=== PATIENT | female | born 1930 | race Caucasian/White ===

== ENCOUNTER 2017-06-26 16:05 | Observation (INO) | payer MEDICARE ==
[~2017-06-26] VITALS: Ht 162.6 cm; Wt 79.2 kg
[~2017-06-26 16:05] MED LIST: AMLO5TAB2 PO; ASP81TEC PO; CALC-732 PO; CRV25T PO; FENO160T3 PO; GABA300C PO; HUM100VI12 SC; KCL10CCR PO; LISI1TAB10 PO; MULT-974 PO; NORT25CA PO; OMEG-9 PO; PRAV40TA PO; VITA400T9 PO
--- OUTSIDE RECORDS SUMMARY | 2017-06-26 16:09 | XMS REPORT | Continuity of Care Document ---
Author Author [facility] Organization [facility] Address Unknown Phone Unavailable Allergies Medications Problems Procedures Results Encounters ACCT No. Visit Date/Time Discharge Status Pt. Type Provider Facility Loc./Unit Complaint [id number] 04/06/2014 20:45:00 2013 10:50:00 DIS Inpatient
[2017-06-26] MEDS ORDERED: fentaNYL INJECTION 100 MCG/2 ML AMP IVP STA ×3 (16:13→20:45)
--- NOTE | 2017-06-26 16:44 | Diagnostic Imaging Report ---
PROCEDURE: CT head without contrast. TECHNIQUE: Multiple contiguous axial images were obtained through the brain without the use of intravenous contrast. INDICATION: Fall. Head injury. COMPARISON: None. FINDINGS: No acute intracranial hemorrhage, mass effect, or edema is seen. There is mild diffuse atrophy. The ventricles appear unremarkable. There are a few scattered areas of hypodensity in periventricular white matter which are nonspecific but probably related to chronic microvascular ischemic change. Paranasal sinuses and mastoids are clear as visualized. No basilar skull fracture is suspected. IMPRESSION: No evidence of an acute intracranial abnormality. Dictated by: Dictated on workstation # [id number]
--- NOTE | 2017-06-26 16:53 | ED Fall/Injury ---
General Chief Complaint: Trauma-Non Activation Stated Complaint: FALL Nursing Triage Note: to ER by [facility] with reports of fall at home, landing on her right knee. Patient was in the kitchen, turned and lost her footing and fell, landing directly on the right knee. Patient denies hitting head, denies LOC, denies any other injury. There is moderate swelling to the right knee. Source: patient Exam Limitations: no limitations History of Present Illness Time seen by provider: 16:11 Initial Comments 87-year-old female patient presents to the emergency department via [facility] with reports of falling at home. Reports landing on her right knee and right elbow. Now complains of right knee pain. Denies hitting her head or loss of consciousness. Patient is legally blind. Patient lives at home alone. Patient is unable to bear weight on the right lower extremity. Location Injury Occurred: home Occurred: just prior to arrival Injuries/Pain Location: upper extremity (right elbow), lower extremity (right knee) Context: tripped Loss of Consciousness: no loss of consciousness Modifying Factors: Worse With Movement Allergies and Home Medications Allergies Coded Allergies: No Known Drug Allergies (Unverified , 04/06/14) Home Medications Acetaminophen 500 Mg Tablet, 500 MG PO DAILY, (Reported) Amlodipine Besylate 5 Mg Tablet, 5 MG PO DAILY, (Reported) Aspirin 81 Mg Tabec, 81 MG PO DAILY, (Reported) Calcium Carb/Vit D3/Minerals 1 Each Tab.chew, 1 EACH PO DAILY, (Reported) Carvedilol 25 Mg Tablet, 1 EACH PO BID, (Reported) Clopidogrel Bisulfate 75 Mg Tablet, 75 MG PO DAILY, (Reported) Fenofibrate,Micronized 160 Mg Tablet, 1 TAB PO DAILY, #30 (Reported) Furosemide 40 Mg Tablet, 40 MG PO LASIXBID, (Reported) Gabapentin 300 Mg Capsule, 300 MG PO HS, (Reported) Hctz/Lisinopril 1 Tab Tablet, 1 EACH PO DAILY, (Reported) Multivitamin 1 Each Tablet, 1 EACH PO DAILY, (Reported) Nortriptyline Hcl 25 Mg Capsule, 25 MG PO DAILY, (Reported) [place]-3/Dha/Epa/Fish Oil 1 Each Capsule.dr, 1 EACH PO DAILY, (Reported) Omeprazole 20 Mg Capsule.dr, 20 MG PO DAILY, (Reported) Potassium Chloride 20 Meq Tablet.er, 20 MEQ PO LASIXBID, (Reported) 20mEQ IN AM EVERY OTHER DAY WITH LASIX Potassium Chloride 10 Meq Tablet.er, 10 MEQ PO LASIXBID, (Reported) 10mEQ IN PM ON DAYS YOU TAKE LASIX Pravastatin Sodium 40 Mg Tablet, 40 MG PO HS, (Reported) Vitamin E Mixed 400 Unit Tablet, 400 UNIT PO DAILY, (Reported) Constitutional: no symptoms reported Eyes: No Symptoms Reported Ears, Nose, Mouth, Throat: no symptoms reported Respiratory: No cough, No short of breath Cardiovascular: No chest pain, No palpitations Gastrointestinal: No abdominal pain, No nausea, No vomiting Genitourinary: no symptoms reported Musculoskeletal: No back pain, joint pain (right knee and right elbow), joint swelling (right knee), No neck pain Skin: change in color (bruising to the right knee per EMS) Psychiatric/Neurological: Denies Headache, Denies Numbness, Denies Paresthesia , Pre-Existing Deficit (legally blind), Denies Seizure, Denies Tingling, Denies Weakness All Other Systems Reviewed Negative Unless Noted: Yes (Negative excepted noted.) Past Vexwamw-Ouxslm-Byfenu Hx Patient Social History Alcohol Use: Denies Use Recreational Drug Use: No Smoking Status: Never a Smoker 2nd Hand Smoke Exposure: No Recent Foreign Travel: No Contact w/Someone Who Travel: No Recent Infectious Disease Expo: No Immunizations Up To Date Tetanus Booster (TDap): More than 5yrs Date of Pneumonia Vaccine: Sep 06, 2010 Date of Influenza Vaccine: Sep 07, 2013 Surgeries HX Surgeries: Yes Respiratory Hx Respiratory Disorders: No Cardiovascular Hx Cardiac Disorders: Yes Neurological Hx Neurological Disorders: Yes Reproductive System Hx Reproductive Disorders: No Sexually Transmitted Disease: No HIV/AIDS: No Genitourinary Hx Genitourinary Disorders: No Gastrointestinal Hx Gastrointestinal Disorders: Yes Gastrointestinal Disorders: Gastroesophageal Reflux Musculoskeletal Hx Musculoskeletal Disorders: No Endocrine Hx Endocrine Disorders: Yes Endocrine Disorders: Diabetes, Non-Insulin dep HEENT HX ENT Disorders: Yes HEENT Disorders: Macular Degeneration Loss of Vision: Bilateral Hearing Impairment: Denies Cancer Hx Cancer: No Psychosocial Hx Psychiatric Problems: No Integumentary HX Skin/Integumentary Disorder: No Blood Transfusions Hx Blood Disorders: No Adverse Reaction to a Blood Tr: No Reviewed Nursing Assessment Reviewed/Agree w Nursing PMH: Yes Family Medical History Significant Family History: No Pertinent Family Hx Physical Exam Vital Signs Vital Sign - Last 12Hours 06/26/17 16:11 Temp 98.2 Pulse 70 Resp 18 B/P (MAP) 183/90 Pulse Ox 94 O2 Delivery Room Air Capillary Refill : Less Than 3 Seconds General Appearance: WD/WN, no apparent distress HEENT: PERRL/EOMI, normal ENT inspection, TMs normal, pharynx normal, other ( normocephalic, atraumatic. No chung sign or raccoon eyes.) Neck: non-tender, full range of motion, supple, normal inspection Cardiovascular: normal peripheral pulses, regular rate, rhythm, no edema, no murmur Respiratory: chest non-tender, lungs clear, normal breath sounds, no respiratory distress, no accessory muscle use, No other (no evidence of trauma to the chest wall) Peripheral Pulses: 2+ Dorsalis Pedis (R), 2+ Left Dors-Pedis (L), 2+ Radial Pulses (R), 2+ Radial Pulses (L) Gastrointestinal: normal bowel sounds, non tender, soft, no organomegaly, No distended, No other (no evidence of trauma to the abdominal wall) Back: normal inspection, no vertebral tenderness Extremities: other (swelling, ecchymosis, tenderness of the right knee with asymmetry. Decreased range of motion right knee. mild ecchymosis, swelling, and soft tissue tenderness rt medial elbow. no bony tenderness noted.) Neurologic/Psychiatric: dental biller II-XII nml as tested, no motor/sensory deficits, alert, normal mood/affect, oriented x 3 Skin: normal color, warm/dry, ecchymosis (ecchymosis right knee and right medial elbow) Rice Coma Score Best Eye Response: (4) Open Spontaneously Best Verbal Response: (5) Oriented Best Motor Response: (6) Obeys Commands Rice Total: 15 Progress/Results/Core Measures Results/Orders My Orders Orders - MENDEZ MENENDEZ Femur, Right, 2 Views (06/26/17 16:10) Tibia/Fibula, Right, 2 Views (06/26/17 16:10) Ct Head Wo (06/26/17 16:10) Fentanyl Injection (Sublimaze Injection (06/26/17 16:13) Ct Extremity Lower Right Wo (06/26/17 17:36) Fentanyl Injection (Sublimaze Injection (06/26/17 18:21) Fentanyl Injection (Sublimaze Injection (06/26/17 18:33) Knee Immobilizer (06/26/17 19:36) Medications Given in ED Current Medications Medications Dose Ordered Sig/Osvaldo Route Start Time Stop Time Status Last Admin Dose Admin Fentanyl Citrate 100 mcg STK-MED ONCE .ROUTE 06/26/17 18:21 06/26/17 18:28 DC 06/26/17 18:30 50 MCG Vital Signs/I&O Vital Sign - Last 12Hours 06/26/17 06/26/17 06/26/17 06/26/17 16:11 16:55 18:30 18:35 Temp 98.2 98.2 98.2 98.2 Pulse 70 Resp 18 B/P (MAP) 183/90 Pulse Ox 94 O2 Delivery Room Air Blood Pressure Mean: 121 Diagnostic Imaging Diagonstic Imaging: CT Plain Films/CT/US/NM/MRI: head Comments FINDINGS: No acute intracranial hemorrhage, mass effect, or edema is seen. There is mild diffuse atrophy. The ventricles appear unremarkable. There are a few scattered areas of hypodensity in periventricular white matter which are nonspecific but probably related to chronic microvascular ischemic change. Paranasal sinuses and mastoids are clear as visualized. No basilar skull fracture is suspected. IMPRESSION: No evidence of an acute intracranial abnormality. Dictated by: Dictated on workstation # [id number] Reviewed: Reviewed by Me (radiology report reviewed by me) Diagonstic Imaging: Xray Plain Films/CT/US/NM/MRI: femur Comments FINDINGS: Two views of the right femur demonstrate no acute fracture or dislocation. Moderate degenerative changes are seen involving the right knee, mild degenerative changes right hip. There is moderate soft tissue swelling without obvious joint effusion. Vascular clips are present probably from greater saphenous vein harvest. IMPRESSION: 1. No acute fracture or dislocation. 2. Moderate soft tissue swelling inferior and anterior to the patella. Dictated by: Dictated on workstation # [id number] Reviewed: Reviewed by Me (radiology report reviewed by me) Diagonstic Imaging: Xray Plain Films/CT/US/NM/MRI: leg Comments FINDINGS: Four views of the right tibia and fibula demonstrate soft tissue swelling anterior to the right knee joint. There is no acute fracture or dislocation. Advanced degenerative changes involving the right knee. Mild degenerative changes of the right ankle. IMPRESSION: No fracture or dislocation. Dictated on workstation # [id number] Reviewed: Reviewed by Me (radiology report reviewed by me.) Diagonstic Imaging: CT Plain Films/CT/US/NM/MRI: knee Comments FINDINGS: There is diffuse joint space narrowing which is most pronounced in the medial compartment of the knee. There is associated subchondral sclerosis and marginal osteophytes as well. There is marked narrowing of the canal. In addition, there is what appears to be prominent hematoma anterior to the tibia and fibula. Surgical clips are seen within the medial aspect of the thigh and calf. There is extensive atherosclerotic calcification noted. IMPRESSION: 1. Osteoarthritis of the knee which is most pronounced in the patellofemoral and medial compartments. There is a mild amount of fluid in the knee joint; however , no acute osseous abnormality is identified. 2. There is evidence of anterior and lateral hematoma at the level of the knee and proximal calf. Dictated on workstation # [id number] Reviewed: Reviewed by Me (radiology report reviewed by me) Departure Communication Time/Spoke to Admitting Phy: 19:24 Communication Lori Deal graciously accepts patient to her internal medicine service for pain control and PT/OT. Progress Notes Diagnostic findings were discussed with the patient and family. Initially attempted to dsch patient to home; however, patient is unable to bear weight on the RLE. Unable to use the crutches or walker for assistance with ambulation. No trauma consult needed due to patient being admitted for pain control and PT/ OT. Patient case discussed with Dr. Marshall, he agrees with the plan of care. Impression Impression: Primary Impression: Traumatic hematoma of right knee Qualified Codes: S80.01XA - Contusion of right knee, initial encounter Additional Impressions: Contusion of right elbow Qualified Codes: S50.01XA - Contusion of right elbow, initial encounter Fall Qualified Codes: W19.XXXA - Unspecified fall, initial encounter Disposition: ADMITTED INPATIENT Condition: Stable Admissions Decision to Admit Reason: Admit from ER (General) Decision to Admit/Date: Jun 26, 2017 Time/Decision to Admit Time: 19:24 Departure-Patient Inst. Referrals: NO,LOCAL PHYSICIAN (PCP/Family) Primary Care Physician MENDEZ MENENDEZ Jun 26, 2017 16:53
--- NOTE | 2017-06-26 17:00 | Diagnostic Imaging Report ---
INDICATION: Fall, right knee and leg pain. COMPARISON: None. FINDINGS: Four views of the right tibia and fibula demonstrate soft tissue swelling anterior to the right knee joint. There is no acute fracture or dislocation. Advanced degenerative changes involving the right knee. Mild degenerative changes of the right ankle. IMPRESSION: No fracture or dislocation. Dictated by: Dictated on workstation # [id number]
--- NOTE | 2017-06-26 18:20 | Diagnostic Imaging Report ---
PROCEDURE: CT right lower extremity without contrast. TECHNIQUE: Axially acquired CT was obtained through the right lower extremity without intravenous contrast. Coronal and sagittal reformations were also performed. INDICATION: Fall with right knee pain. FINDINGS: There is diffuse joint space narrowing which is most pronounced in the medial compartment of the knee. There is associated subchondral sclerosis and marginal osteophytes as well. There is marked narrowing of the canal. In addition, there is what appears to be prominent hematoma anterior to the tibia and fibula. Surgical clips are seen within the medial aspect of the thigh and calf. There is extensive atherosclerotic calcification noted. IMPRESSION: 1. Osteoarthritis of the knee which is most pronounced in the patellofemoral and medial compartments. There is a mild amount of fluid in the knee joint; however, no acute osseous abnormality is identified. 2. There is evidence of anterior and lateral hematoma at the level of the knee and proximal calf. Dictated by: Dictated on workstation # [id number]
[2017-06-26] MEDS ORDERED: fentaNYL INJECTION 100 MCG/2 ML AMP ONE ×2 (18:21→20:41)
--- OUTSIDE RECORDS SUMMARY | 2017-06-26 20:46 | XMS REPORT | Continuity of Care Document ---
Author Author [facility] Organization [facility] Address Unknown Phone Unavailable Allergies Medications Problems Procedures Results Encounters ACCT No. Visit Date/Time Discharge Status Pt. Type Provider Facility Loc./Unit Complaint [id number] 04/06/2014 20:45:00 2013 10:50:00 DIS Inpatient
[2017-06-26 21:25] VITALS: BP 148/83
[2017-06-26] MEDS ORDERED: GABA-488 PO (21:42)
[2017-06-26] MEDS ORDERED: CATHETER FLUSH 10 ML SYR IV PRN (21:45)
[2017-06-26] MEDS ORDERED: GABAPENTIN 300 MG (NEURONTIN) CAP ONE (21:45)
[2017-06-26] MEDS ORDERED: HYDROcodone/APAP 5 MG/325 MG (LORTAB) TAB PO PRN (21:45)
[2017-06-26] MEDS ORDERED: inSUlin DETERMIR 1 UNIT/0.01 ML (LEVEMIR) CHARGE PER UNIT SQ ONE (21:45)
[2017-06-26] MEDS ORDERED: CARVEDILOL 12.5 MG (COREG) TABLET ONE (21:45)
[2017-06-26] MEDS ORDERED: fentaNYL INJECTION 100 MCG/2 ML AMP IV PRN (21:45)
[2017-06-26] MEDS ORDERED: ONDANSETRON 4 MG/2 ML (SDV) Z0FRAN IV PRN (21:45)
[2017-06-27] VITALS: BP 159/67
[2017-06-27] MEDS ORDERED: POTA-51 PO (00:07)
[2017-06-27] MEDS ORDERED: POTA10TA10 PO (00:09)
[2017-06-27] MEDS ORDERED: CLOP75TA28 PO (00:12)
[2017-06-27] MEDS ORDERED: FURO40TA4 PO (00:12)
[2017-06-27] MEDS ORDERED: OMEP20CA12 PO (00:12)
[2017-06-27] MEDS ORDERED: ACET-93 PO (00:13)
[2017-06-27] MEDS: CATHETER FLUSH 10 ML SYR IV SCH ×3 (00:22→14:09)
[2017-06-27 04:00] VITALS: BP 115/59
[2017-06-27] MEDS ORDERED: CARVEDILOL 12.5 MG (COREG) TABLET PO SCH ×2 (07:00→08:00)
[2017-06-27 08:06] VITALS: BP 123/70
--- NOTE | 2017-06-27 08:26 | History & Physical-Hospitalist ---
HPI History of Present Illness: HPI/Chief Complaint his is an 87-year-old white female who was in her usual state of health yesterday and was in her kitchen. She turned and felt her right knee give way and she fell landing on top of the right knee. She was taken to the emergency room by EMS where she was unable to weight-bear. She was admitted overnight since she lives alone for pain control and for physical therapy evaluation this morning. This morning the patient notes that her knee feels somewhat better and feels like she can weight bear. She does have chronic urinary incontinence is concerned about getting up with incontinence until she gets her depends. She uses a walker at home. She has a past history of osteoarthritis of her knees and has received cortisone injections and they're in the past. She denies having any syncope or presyncopal event causing this. she is legally blind secondary to macular degeneration. During my interview this morning the son is present and participates in conversation. He feels like she can possibly go home as well after physical therapy evaluates her. Source: patient, family Exam Limitations: no limitations Date Seen 06/27/17 Time Seen by Provider: 08:15 Attending Physician Lori Gruber MD PCP No,Local Physician Referring Physician Date of Admission Jun 26, 2017 at 20:20 Home Medications & Allergies Home Medications Reviewed patient Home Medication Reconciliation Form Allergies Allergies Coded Allergies No Known Drug Allergies (Unverified04/06/14) Past Tmgdpxr-Lxyvih-Iqposx Hx Patient Social History Marrital Status: Employed/Student: retired Alcohol Use: Denies Use Recreational Drug Use: No Smoking Status: Former Smoker 2nd Hand Smoke Exposure: No Physical Abuse Screen: No Sexual Abuse: No Recent Foreign Travel: No Contact w/other who traveled: No Recent Hopitalizations: No Recent Infectious Disease Expo: No Immunizations Up To Date Tetanus Booster (TDap): More than 5yrs Date of Pneumonia Vaccine: Aug 09, 2016 Date of Influenza Vaccine: Sep 07, 2013 Seasonal Allergies Seasonal Allergies: No Surgeries HX Surgeries: Yes Surgeries: Coronary Stent, Pacemaker Respiratory Hx Respiratory Disorders: No Cardiovascular Hx Cardiovascular Disorders: Yes Cardiac Disorders: Coronary Artery Disease, Heart Attack, High Cholesterol, Hypertension Neurological Hx Neurological Disorders: Yes Neurological Disorders: Neuropathy Reproductive System Hx Reproductive Disorders: No Sexually Transmitted Disease: No HIV/AIDS: No Genitourinary Hx Genitourinary Disorders: No Gastrointestinal Hx Gastrointestinal Disorders: Yes Gastrointestinal Disorders: Gastroesophageal Reflux Musculoskeletal Hx Musculoskeletal Disorders: Yes Musculoskeletal Disorders: Arthritis Endocrine Hx Endocrine Disorders: Yes Endocrine Disorders: Diabetes, Non-Insulin dep HEENT HX ENT Disorders: Yes HEENT Disorders: Cataract, Macular Degeneration Loss of Vision: Bilateral Hearing Impairment: Denies Cancer Hx Cancer: No Psychosocial Hx Psychiatric Problems: No Behavioral Health Disorders: Anxiety Integumentary HX Skin/Integumentary Disorder: No Blood Transfusions Hx Blood Disorders: No Adverse Reaction to a Blood Tr: No Reviewed Nursing Assessment Reviewed/Agree w Nursing PMH: Yes Family Medical History Significant Family History: No Pertinent Family Hx Family Hx: FH: leukemia 19 MOTHER FH: lung cancer 19 FATHER Hypertension 19 MOTHER Review of Systems Constitutional: no symptoms reported EENTM: vision loss Respiratory: no symptoms reported Cardiovascular: no symptoms reported Gastrointestinal: no symptoms reported Genitourinary: incontinence Musculoskeletal: joint pain, joint swelling Skin: no symptoms reported Psychiatric/Neurological: No Symptoms Reported Physical Exam Physical Exam Vital Signs Vital Sign - Last 12Hours 06/26/ 16:11 Temp 98.2 Pulse 70 Resp 18 B/P (MAP) 183/90 Pulse Ox 94 O2 Delivery Room Air Capillary Refill : Less Than 3 Seconds General Appearance: No Apparent Distress, WD/WN HEENT: Normal ENT Inspection Neck: Normal Inspection, Non Tender, Supple Respiratory: Chest Non Tender, Lungs Clear, Normal Breath Sounds, No Accessory Muscle Use Cardiovascular: Regular Rate, Rhythm, Systolic Murmur (over 6) Gastrointestinal: Normal Bowel Sounds, Non Tender, Soft Rectal: Deferred Back: Normal Inspection Extremity: Swelling, Other (right knee is ecchymotic with a excoriation over the knee. Her muscle strength is 5 over 5. She has limited flexion of the right knee because of the swelling.) Skin: Ecchymosis Lymphatic: No Adenopathy Assessment/Plan Admission Diagnosis 1. contusion of the right knee with inability to ambulate secondary to pain and swelling. 2. Legally blind and at risk for further falls. 3. Type II diabetes on insulin. 4. Coronary artery disease on Plavix, and increasing the bleeding into the right knee. plan is to have her son get her walker from home have physical therapy evaluate her this morning and possible discharge this afternoon if she is able to safely ambulate Clinical Quality Measures DVT/VTE Risk/Contraindication: Risk Factor Score Per Nursin RFS Level Per Nursing on Admit: 4+=Very High LORI GRUBER MD Jun 27, 2017 08:26
[2017-06-27] MEDS ORDERED: ARTIFICAL TEARS 0.4 ML UNIT DOSE (REFRESH PLUS) OU PRN (08:30)
[2017-06-27] MEDS ORDERED: FENOFIBRATE 134 MG (LOFIBRA) CAPSULE PO SCH (09:00)
[2017-06-27] MEDS ORDERED: CLOPIDOGREL 75 MG (PLAVIX) TABLET PO SCH (09:00)
[2017-06-27] MEDS ORDERED: amLODIPine 5 MG (NORVASC) TAB PO SCH (09:00)
[2017-06-27] MEDS ORDERED: LISINOPRIL PO SCH (09:00)
[2017-06-27] MEDS ORDERED: FENOFIBRATE MICRONIZED PO SCH (09:00)
[2017-06-27] MEDS ORDERED: inSUlin DETERMIR 1 UNIT/0.01 ML (LEVEMIR) CHARGE PER UNIT SQ SCH ×2 (09:00→21:00)
[2017-06-27] MEDS ORDERED: ASPIRIN E.C. 81 MG (ECOTRIN) TAB PO SCH (09:00)
[2017-06-27] MEDS ORDERED: CARVEDILOL PO SCH (09:00)
[2017-06-27] MEDS ORDERED: HCTZ PO SCH (09:00)
[2017-06-27] MEDS ORDERED: lisINopril 20 MG (ZESTRIL) TAB PO SCH (09:00)
[2017-06-27] MEDS ORDERED: HYDROCHLOROTHIAZIDE 25 MG (HCTZ) TAB PO SCH (09:00)
[2017-06-27 12:00] VITALS: BP 124/59
--- NOTE | 2017-06-27 12:21 | D/C HH Face to Face Order ---
D/C Face to Face Orders Instructions for Patient Patient Instructions/FollowUp: home health for physical therapy Physician to follow Patient: Dr. Victoria Discharge Diet for Home: Cardiac Diet Patient Data-Allergies,Ht & Wt Patient Allergies: Coded Allergies: No Known Drug Allergies (Unverified , 04/06/14) Height (Feet): 5 Height (Inches): 4.00 Weight (Pounds): 174 Weight (Ounces): 8.0 Home Health Need/Face to Face Date of Face to Face: Jun 27, 2017 Clinical Findings: Instability, Non or partial weight bearing, Pain with ambulation I have seen Pt [id number]: Yes Discharged To: Home Diagnosis/Conditions: contusion and hematoma of the left knee Problems/Diagnosis/Condition: Patient is Homebound due to: Obdulia fall risk due to instabilty, Pain w/ ambulation Homebound Status Due to the above stated illness, injury or surgical procedure (medical condition or diagnosis) and associated clinical findings, the patient is homebound because of his/her inability to leave home except with aid of a supportive device and/or person AND leaving the home requires a considerable and taxing effort or is medically contraindicated. Pt req the following assistanc: Walker Home Health Nursing Orders Home Health Services Order: Physical Therapy-Evaluate & Treat Home Health Infusion Therapy Line Start Date: Jun 26, 2017 Line Start Time: 1555 Site Location: Hand Therapy Orders Therapy Orders: Physical Therapy Therapy Specific Orders: Teach enviro modifications/safety, Increase strength/ endurance Certify Stmt I certify that this patient is under my care and that I, a nurse practitioner or a physician; a assistant media buyer working with me, had a face to face encounter that - meets the physician face to face encounter requirements with this patient as dated. CORDELL GRUBER MD Jun 27, 2017 12:21
--- NOTE | 2017-06-27 12:21 | Occ Therapy Progress Note ---
Therapy Progress Note Order received, chart reviewed. Physical therapy evaluated this pt. and spoke to this OT afterwards. Physical therapist states that pt. is able to ambulate to bathroom, and needed assist to toilet due to IV placement and unfamiliar environment only. Pt. was able to don slipper socks with PT assist due to low vision. States that she has a set up at home. PT states that she spoke with nurse, nurse aide and physician regarding pt. being more independent in her own environment due to visual issues, which can't be taught or corrected here. Pt. to discharge soon with the recommendation of physical therapy at home to increase overall strength of knee. No OT needs warranted at this time per physical therapy and therefore no evaluation will take place. Thank you for the consult on this pt. 1220 JESSICA PATRICIO OT Jun 27, 2017 12:21
--- NOTE | 2017-06-27 13:05 | Physical Therapy Evaluation ---
PT Evaluation-General Medical Diagnosis Admission Date Jun 26, 2017 at 20:20 Medical Diagnosis: fall with (R) knee pain Onset Date: Jun 26, 2017 Therapy Diagnosis Therapy Diagnosis: weakness Height/Weight Height (Feet): 5 Height (Inches): 4.00 Weight (Pounds): 174 Weight (Ounces): 8.0 Precautions Precautions/Isolations: Fall Prevention, Standard Precautions Weight Bear Status Weight Bearing Restriction: Weight Bearing/Tolerated Location Restriction: R LE Referral Physician: Say Reason for Referral: Evaluation/Treatment Medical History Pertinent Medical History: DM, GERD, Macular Degenertion (legally blind) Current History To ER via EMS on 06/26/17 due to fall directly onto (R) knee. (-) X-rays Reviewed History: Yes Social History Home: Single Level Current Living Status: Alone Entry Into Home: Level Entry Pt reports she does not leave the home without assist from family. Prior/Core FIM Prior Level of Function Functional [place] Measure 0=Not Assessed/NA 4=Minimal Assistance 1=Total Assistance 5=Supervision or Setup 2=Maximal Assistance 6=Modified [place] 3=Moderate Assistance 7=Complete [place] Bed Mobility: 6 Transfers (B,C,W/C) (FIM): 6 Gait: 6 Pt reports FWW in the home at mod (I) level. 4WW in community. Has someone to clean her home, kids go grocery shopping for her. PT Evaluation-Current Subjective Pt agreeable. Denies knee pain this date. Reports she was feeling "a little weak in the knees for about a week before I fell". Reports she has already been up to the bathroom with nursing and only requires assist due to low vision in unfamiliar environment. Pt/Family Goals Home Objective Patient Orientation: Person, Place, Time, Situation Problem Solving: Good ROM/Strength ROM Upper Extremities WFL for mobility ROM Lower Extremities WFL for mobility Strength Upper Extremities WFL for mobility Strenght Lower Extremities Grossly 3+-4/5 Integumentary/Posture Integumentary See nurses' notes Posture kyphotic Neuromuscular (Tone, Coordination, Reflexes) intact Sensory Vision: Blind Legally Hearing: Functional Sensation Right Lower Extremit: Intact Sensation Left Lower Extremity: Intact Transfers Functional [place] Measure 0=Not Assessed/NA 4=Minimal Assistance 1=Total Assistance 5=Supervision or Setup 2=Maximal Assistance 6=Modified [place] 3=Moderate Assistance 7=Complete [place] Transfers (B, C, W/C) (FIM): 6 Scootin Rollin Supine to/from Sit: 6 Sit to/from Stand: 6 Gait Mode of Locomotion: Walk Anticipated Mode of Locomotion: Walk Gait (FIM): 5 Distance (FIM): 3=150 ft Distance: 200 Gait Level of Assist: 5 Gait Persons Needed: 1 Gait Assistive Device: FWW Comments/Gait Description Assist with gait required only due to low vision in unfamiliar environment. Stairs If not tested on admit;explain Pt reports that she does not negotiate steps at PLOF Balance Sitting Static: Normal Sitting Dynamic: Normal Standing Static: Good Standing Dynamic: Good Assessment/Needs Pt is an 87 y.o. female s/p fall onto (R) knee. This date, Pt denies knee pain and reports she is at PLOF for mobility. Pt may benefit from short term PT for functional strengthening as she feels weakness in (B) knees contributed to fall. Pt was able to don/doff socks with set-up (due to vision only) and nursing reports she was limited in tamika-care due to IV placement. Rehab Potential: Good PT Business Office Representative Goals Business Office Representative Goals PT Business Office Representative Goals Time Frame: Jul 01, 2017 Transfers (B,C,W/C) (FIM): 6 Gait (FIM): 6 Gait distance (FIM): 3=150 ft Distance: 150 Gait Assistive Device: FWW PT goals established to allow safe return home. PT Plan Problem List Problem List: Functional Strength, Gait Treatment/Plan Treatment Plan: Continue Plan of Care Treatment Plan: Education, Functional Activity Petey, Functional Strength, Gait , Therapeutic Exercise Treatment Duration: Jul 01, 2017 Frequency: Daily Estimated Hrs Per Day: .25 hour per day Patient and/or Family Agrees t: Yes Safety Risks/Education Teaching Recipient: Patient Teaching Methods: Discussion Response to Teaching: Verbalize Understanding PT POC Discharge Recommendations Therapy D/C Recommendations: Physical Therapy Home Care Barriers to Progress legally blind in unfamiliar environment Time/GCodes Time In: 1109 Time Out: 1135 Total Billed Treatment Time: 26 Total Billed Treatment 1, EVLOWC x 26 G Codes Necessary: Yes PT/OT Therapy GCodes Therapy Functional Limitation: Physical Therapy Test(s)/Tool used to determine: Level of Assistance Scale Functional Limitation-Current Charge Code: MICHEL Modifier: CI Functional Limitation-Goal Charge Code: [id number] Modifier: CI ROLAND CARRASCO DPT Jun 27, 2017 13:05
[2017-06-27] MEDS ORDERED: KCL 10 MEQ TAB (MICRO K) PO SCH (17:00)
[2017-06-27] MEDS ORDERED: FUROSEMIDE 40 MG (LASIX) TAB PO SCH (17:00)
[2017-06-27] MEDS ORDERED: NON-FORMULARY MEDICATION 1 EA EA (Pravastatin Sodium (Pravachol) 40 MG) PO SCH (21:00)
[2017-06-27] MEDS ORDERED: ATORVASTATIN 10 MG (LIPITOR) TABLET PO SCH (21:00)
[2017-06-27] MEDS ORDERED: GABAPENTIN 300 MG (NEURONTIN) CAP PO SCH (21:00)
== END 2017-06-27 12:05 | disposition home health service (06) ==
LOC: EDUNIT# 16:05 → ER 16:06 → UNDOADMOB 20:20 → 4TH 20:20 → UNDODISOB 06-27 14:35
PROVIDERS: ADMIT Internal Medicine; ATTEND Internal Medicine
DX: S80.01XA Contusion of right knee, initial encounter (principal); S50.01XA Contusion of right elbow, initial encounter; M17.11 Unilateral primary osteoarthritis, right knee; H54.8 Legal blindness, as defined in USA; H35.30 Unspecified macular degeneration; I10 Essential (primary) hypertension; E11.9 Type 2 diabetes mellitus without complications; I25.10 Atherosclerotic heart disease of native coronary artery without angina pectoris; I25.2 Old myocardial infarction; K21.9 Gastro-esophageal reflux disease without esophagitis; Z79.4 Long term (current) use of insulin; Z79.02 Long term (current) use of antithrombotics/antiplatelets; Z79.82 Long term (current) use of aspirin; Z79.899 Other long term (current) drug therapy; W01.0XXA Fall on same level from slipping, tripping and stumbling without subsequent striking against object, initial encounter; Y92.010 Kitchen of single-family (private) house as the place of occurrence of the external cause; Y99.8 Other external cause status
CPT/HCPCS: 70450; 73552; 73590; 73700; 82962; 96374; 96376; G0378